=== PATIENT | female | born 1960 | race Caucasian/White ===

== ENCOUNTER → 2017-03-18 | Outpatient (CLI) | payer OTHER ==
--- NOTE | 2017-03-30 22:30 | EEG ---
DATE OF SERVICE: EEG DATE: EEG NUMBER: [id number] OBJECTIVE: This is a 56-year-old female patient with a history of confusion episodes. EEG was requested to help rule out seizure. METHODS: Twenty electrodes were applied according to the International 10-20 electrode placement system. EKG monitoring, hyperventilation, intermittent photic stimulation, monopolar and bipolar montages are routinely utilized. The record was obtained on a digital system with video monitoring. MEDICATIONS: No anti-seizure medication. FINDINGS: 1. Background: The patient was recorded in the awake, drowsy and sleep states. The overall background amplitude is 10-30 microvolts. A posterior dominant rhythm of 8-10 Hz is observed. 2. Abnormalities: No specific epileptiform discharge or electrographic seizure is seen. No focal or diffuse slowing. There are a few brief high amplitude waves noted; however, they are not considered as epileptogenic. 3. Activation: Hyperventilation was performed with good efforts and normal response. Intermittent photic stimulation was performed with photic driving. No specific epileptiform discharge or electrographic seizure induced by hyperventilation or intermittent photic stimulation. IMPRESSION: This is an extended video EEG study with a total video monitoring and EEG recording time of 1 hour and 30 minutes. This extended video EEG study is a borderline study for the awake, drowsy and sleep states. No focal, lateralizing, specific epileptiform discharge, or electrographic seizure is seen. ASHLEY MASTERSON MD DR: ROHIT/hina JOB#: [id number] / [id number]
== END | disposition home or self-care (01) ==
LOC: RT 09:49
PROVIDERS: ATTEND Psychiatry & Neurology Neurology
DX: R41.0 Disorientation, unspecified (principal)
CPT/HCPCS: 95816

== ENCOUNTER → 2017-07-06 | Outpatient (CLI) | payer OTHER ==
--- NOTE | 2017-07-07 15:34 | SLEEP ---
DATE OF STUDY: 07/06/2017 ATTENDING PHYSICIAN: Dr. Reyes. The patient is 56 years old who weighs 130 pounds with a BMI of 20. The patient's Justice score is 3. The patient underwent sleep study at [facility]. This was a diagnostic study. During the night study, the patient spent 432 minutes in bed and slept for 296 minutes with a sleep efficiency of 68%. Sleep latency was 7 minutes with a REM latency of 61 minutes. Overall, sleep architecture showed increased stage 1 and stage 2 sleep, normal slow wave and normal REM sleep. During the night study, the patient had 2 obstructive apneas, 1 hypopnea, 2 mixed apneas and 5 central apneas. The patient's AHI for the entire night was 2 per hour, supine AHI 3 per hour with a REM AHI of 6 per hour. Review of nocturnal oximetry study revealed no clinically significant desaturation. The patient's mean oxygen saturation remained around 96%. PLMS were seen at index of 1 per hour and none caused EEG arousals. EKG monitoring revealed normal sinus rhythm. Average heart rate was 67 beats per minute. No arrhythmias were observed. Due to low AHI, the patient did not meet the split night criteria for CPAP initiation. IMPRESSION: 1. No clinically significant sleep disordered breathing. The patient's apnea-hypopnea index for the entire night was 2 per hour. 2. No clinically significant periodic limb movements in sleep. 3. No clinically significant nocturnal hypoxia. 4. Reduced sleep efficiency resulting from sleep maintenance insomnia. RECOMMENDATIONS: 1. The patient did not meet the split night criteria for CPAP initiation. 2. Avoid HAND TUBE WINDER depressants. 3. The patient's insomnia should be further evaluated and treated according to etiology. SAM BREAUX MD DR: ISMA/ihna JOB#: [id number] / [id number] [facility]
== END | disposition home or self-care (01) ==
LOC: SLPLAB 18:33
PROVIDERS: ATTEND Internal Medicine Critical Care Medicine
DX: G47.00 Insomnia, unspecified (principal)
CPT/HCPCS: 95810

== ENCOUNTER → 2018-03-29 | Outpatient (CLI) | payer OTHER ==
[2018-03-29 12:25] LABS: ANION GAP 7 (6-14); CARBON DIOXIDE 29 mmol/L (21-32); CHLORIDE 103 mmol/L (98-107); CREATINE KINASE 140 U/L (26-192); GLUCOSE 92 mg/dL (70-99); POTASSIUM 4.1 mmol/L (3.5-5.1); SODIUM 139 mmol/L (136-145)
[2018-03-29 12:31] LABS: TROPONINI < 0.017 ng/mL (0.000-0.055)
== END | disposition home or self-care (01) ==
LOC: EKG 11:26
DX: R55 Syncope and collapse (principal)
CPT/HCPCS: 36415; 80051; 82550; 82947; 84484; 93005

== ENCOUNTER → 2018-04-06 | Outpatient (CLI) | payer OTHER ==
--- NOTE | 2018-04-21 13:48 | EEG ---
DATE OF SERVICE: 04/06/2018 EEG REPORT DATE OF EE04/06/2018. EEG NUMBER: [id number]. OBJECTIVE: This is a 57-year-old female patient with history of seizure-like and cognitive impairment episodes. EEG was requested to help rule out seizure. METHODS: Twenty electrodes were applied according to the international 10-20 electrode placement system. EKG monitoring, hyperventilation, intermittent photic stimulation and monopolar and bipolar montages are routinely utilized. The record was obtained on a digital system with video monitoring. FINDINGS: 1. Background: The patient was recorded in the awake, drowsy and sleep states. The overall background amplitude is 10-14 microvolts. A posterior dominant rhythm of 8-10 Hz is observed. 2. Abnormalities: No specific epileptiform discharge or electrographic seizure is seen. No focal or diffuse slowing. 3. Activation: Hyperventilation was performed with good efforts and normal response. Intermittent photic stimulation was performed with photic driving. IMPRESSION: This EEG is a normal study for the awake, drowsy and sleep states. No focal, lateralizing, specific epileptiform discharge or electrographic seizure is seen. ASHLEY MASTERSON MD DR: ROHIT/hina JOB#: [id number] / [id number]
== END | disposition home or self-care (01) ==
LOC: RT 07:51
PROVIDERS: ATTEND Psychiatry & Neurology Neurology
DX: G31.84 Mild cognitive impairment of uncertain or unknown etiology (principal)
CPT/HCPCS: 95816